=== PATIENT | female | born 1970 | race Caucasian/White ===

== ENCOUNTER 2021-02-20 09:40 | Emergency (ER) | payer BC ==
[2021-02-20 10:08] VITALS: BP 138/80; PULSE 101; RESP 18; TEMP 98.4
[2021-02-20] MEDS ORDERED: FLUORESCEIN STRIPS 1 MG STRIP RIGHT EYE STA (10:18)
[2021-02-20] MEDS ORDERED: PROPARACAINE 0.5% OPHTH DROPS 15 ML BTL RIGHT EYE STA (10:18)
[2021-02-20] MEDS ORDERED: ERYTHROMYCIN 5 MG/GM OPHTH OINT 1 GM TUBE RIGHT EYE STA (11:17)
--- NOTE | 2021-02-20 11:27 | ED ---
General Adult HPI - General Chief complaint: Eye Problems Stated complaint: eye problem Time Seen by Provider: 02/20/21 10:17 Source: patient, RN notes reviewed Mode of arrival: ambulatory Limitations: no limitations - History of Present Illness Initial comments: 51-year-old female without any significant past medical history presents to the emergency room for chief light of right eye irritation. Patient reports that she has irritation of the right eye since yesterday. States she woke up with it. Patient states that it is watering. She denies any purulent discharge. Patient does not use contacts. Patient is up-to-date on tetanus immunization within the year.Patient has no other complaints at this time including shortness of breath, chest pain, abdominal pain, nausea or vomiting, headache, or visual changes. - Related Data Home Medications Medication Instructions Recorded Confirmed Ibuprofen [Motrin] 600 mg PO Q6HR PRN 06/21/14 06/21/14 Previous Rx's Medication Instructions Recorded Erythromycin Ophth Oint [Romycin 1 applic RIGHT EYE QID 7 Days #5 gm 02/20/21 Ophth Oint] Allergies Allergy/AdvReac Type Severity Reaction Status Date / Time No Known Allergies Allergy Verified 02/20/21 10:08 Review of Systems ROS Statement: Those systems with pertinent positive or pertinent negative responses have been documented in the HPI. ROS Other: All systems not noted in ROS Statement are negative. Past Medical History Past Medical History: No Reported History History of Any Multi-Drug Resistant Organisms: None Reported Past Surgical History: Cholecystectomy, Orthopedic Surgery, Tonsillectomy, Tubal Ligation Additional Past Surgical History / Comment(s): RIGHT HAND SURGERY Past Anesthesia/Blood Transfusion Reactions: No Reported Reaction Past Psychological History: No Psychological Hx Reported Smoking Status: Current every day smoker Past Alcohol Use History: Occasional Past Drug Use History: None Reported General Exam Limitations: no limitations General appearance: alert, in no apparent distress Head exam: Present: atraumatic, normocephalic, normal inspection Eye exam: Present: PERRL, EOMI, conjunctival injection (erythema noted to conjunctiva). Absent: scleral icterus, periorbital swelling Expanded Eyelids: Normal Inspection: Bilateral Pupils: Regular, Round: Bilateral Sclera/Conjunctival: Normal Inspection: Left, Injection: Right Visual acuity (R) = 20/: 30 Visual acuity (L) = 20/: 20 With correction: No ENT exam: Present: normal exam, mucous membranes moist, TM's normal bilaterally, normal external ear exam Neck exam: Present: normal inspection, full ROM. Absent: tenderness, meningismus, lymphadenopathy Respiratory exam: Present: normal lung sounds bilaterally. Absent: respiratory distress, wheezes, rales, rhonchi, stridor Cardiovascular Exam: Present: regular rate, normal rhythm, normal heart sounds. Absent: systolic murmur, diastolic murmur, rubs, gallop, clicks GI/Abdominal exam: Present: soft, normal bowel sounds. Absent: distended, tenderness, guarding, rebound, rigid Course Vital Signs 02/20/21 10:04 Temperature 98.4 F Pulse Rate 101 H Respiratory 18 Rate Blood Pressure 138/80 O2 Sat by Pulse 100 Oximetry Medical Decision Making - Medical Decision Making Vis acuity 20/20 OS 20/30 OD. No foreign bodies with flipping of the upper and lower eyelids. The eye was visualized with fluorescein stain and Wood's lamp. fluoroscien stain to the right eye with abrasion noted at 6 oclock. negative siedel sign Disposition Clinical Impression: Corneal abrasion, right Disposition: HOME SELF-CARE Condition: Good Instructions (If sedation given, give patient instructions): Corneal Abrasion (ED) Additional Instructions: Please apply antibiotic ointment as directed every 6 hours for 7 days. Follow- up with primary care or ophthalmology in 1-2 days. Return to the emergency room for any worsening symptoms. Prescriptions: Erythromycin Ophth Oint [Romycin Ophth Oint] 1 applic RIGHT EYE QID 7 Days #5 gm Is patient prescribed a controlled substance at d/c from ED?: No Referrals: Micky Henderson MD [STAFF PHYSICIAN] - 1-2 days Time of Disposition: 11:26
== END 2021-02-20 11:40 | disposition home or self-care (01) ==
LOC: EC 09:40
DX: S05.01XA Injury of conjunctiva and corneal abrasion without foreign body, right eye, initial encounter (principal); F17.200 Nicotine dependence, unspecified, uncomplicated; X58.XXXA Exposure to other specified factors, initial encounter
CPT/HCPCS: 99283

== ENCOUNTER → 2021-05-03 | Outpatient (CLI) | payer BC ==
--- NOTE | 2021-05-03 17:40 | ECHOF ---
Referral Reason:R55.9 Syncope, MEASUREMENTS -------- HEIGHT: 177.8 cm WEIGHT: 124.7 kg BP: RVIDd: 4.2 cm (< 3.3) IVSd: 1.4 cm (0.6 - 1.1) LVIDd: 4.9 cm (3.9 - 5.3) LVPWd: 1.4 cm (0.6 - 1.1) IVSs: 1.9 cm LVIDs: 3.7 cm LVPWs: 1.5 cm LAESV Index (A-L): 33.49 ml/m Ao Diam: 3.2 cm (2.0 - 3.7) AV Cusp: 2.2 cm (1.5 - 2.6) MV EXCURSION: 14.577 mm (> 18.000) MV EF SLOPE: 62 mm/s (70 - 150) EPSS: 2.0 cm MV E Rubni: 1.05 m/s MV DecT: 152 ms MV A Rubin: 1.37 m/s MV E/A Ratio: 0.77 RAP: 5.00 mmHg RVSP: 31.17 mmHg FINDINGS -------- Sinus rhythm. This was a technically adequate study. The left ventricular size is normal. There is moderate concentric left ventricular hypertrophy. O verall left ventricular systolic function is severely impaired with, an EF between 25 - 30 %. Reshma l Doppler inflow pattern suggests diastolic filling abnormality {E/E'}. Mid anterior LV wall motion is hypokinetic. Mid lateral LV wall motion is hypokinetic. Mid anteroseptal LV wall motion is akinetic. Apical anterior LV wall motion is akinetic. Apical lateral LV wall motion is hypokine tic. Apical septum LV wall motion is akinetic. The right ventricle is severely enlarged. LA is moderately dilated 34-39 ml/m2 The right atrial size is normal. 5.0mg of Lumason was utilized for enhancement of images Interatrial and interventricular septum intact. The aortic valve is trileaflet, and appears structurally normal. No aortic stenosis or regurgitation. The mitral valve is normal. Mild mitral regurgitation is present. The tricuspid valve appears structurally normal. Mild tricuspid regurgitation present. Right vent ricular systolic pressure is normal at < 35 mmHg. The right ventricular systolic pressure, as measu red by Doppler, is 31.17mmHg. There is no pulmonic regurgitation present. The aortic root size is normal. IVC Not well visulized. There is no pericardial effusion. CONCLUSIONS -------- 1. There is moderate concentric left ventricular hypertrophy. 2. Overall left ventricular systolic function is severely impaired with, an EF between 25 - 30 %. 3. Mitral Doppler inflow pattern suggest diastolic filling abnormality {E/E'}. 4. Mid anterior LV wall motion is hypokinetic. 5. Mid lateral LV wall motion is hypokinetic. 6. Mid anteroseptal LV wall motion is akinetic. 7. Apical anterior LV wall motion is akinetic. 8. Apical lateral LV wall motion is hypokinetic. 9. Apical septum LV wall motion is akinetic. 10. The right ventricle is severely enlarged. 11. LA is moderately dilated 34-39 ml/m2 12. The aortic valve is trileaflet, and appears structurally normal. No aortic stenosis or regurgitat ion. 13. Mild mitral regurgitation is present. 14. Mild tricuspid regurgitation present. 15. There is no pericardial effusion. BLOGS MANAGER: Yolanda Castillo RDCS
== END | disposition home or self-care (01) ==
LOC: RADECHMAIN 14:57
PROVIDERS: ATTEND Family Medicine
DX: Z12.31 Encounter for screening mammogram for malignant neoplasm of breast (principal); I08.1 Rheumatic disorders of both mitral and tricuspid valves; R55 Syncope and collapse
CPT/HCPCS: 93306; 77067; 77063; Q9950

== ENCOUNTER 2021-05-09 05:49 | Day surgery (SDC) | payer BC ==
[2021-05-08 09:18] VITALS: BMI 41.5
[2021-05-09] MEDS ORDERED: ALPRAZolam 0.5 MG TAB PO PRN (05:58)
[2021-05-09] MEDS ORDERED: SODIUM CHLORIDE 0.9% 1,000 ML in EMPTY BAG 1 BAG IV ONE (05:58)
[2021-05-09] MEDS ORDERED: NITROGLYCERIN SL TABS 0.4 MG TAB SUBLINGUAL PRN (05:58)
[2021-05-09] MEDS ORDERED: ALPRAZolam 0.25 MG TAB PO PRN (05:58)
[2021-05-09] MEDS ORDERED: SODIUM CHLORIDE 0.9% 1,000 ML IV ONE (06:15)
[2021-05-09 06:38] LABS: Basophils # (A) 0.1 k/uL (0-0.2); Basophils % (A) 1 %; Eosinophils # (A) 0.5 k/uL (0-0.7); Eosinophils % (A) 5 %; HCT 42.1 % (34.0-46.0); HGB 14.3 gm/dL (11.4-16.0); Lymphocytes % (A) 22 %; MCH 32.8 pg (25.0-35.0); MCHC 33.9 g/dL (31.0-37.0); MCV 96.5 fL (80.0-100.0); Mean Platelet Volume 7.8; Monocytes # (A) 0.3 k/uL (0-1.0); Monocytes % (A) 4 %; Neutrophils % (A) 68 %; Platelet Count 218 k/uL (150-450); RBC 4.36 m/uL (3.80-5.40); RDW 13.1 % (11.5-15.5); WBC 8.9 k/uL (3.8-10.6)
[2021-05-09 06:46] VITALS: RESP 16; TEMP 98.7
[2021-05-09 06:54] LABS: African American GFR (CKD) >90 (>60 ml/min/1.73 sqM); Anion Gap 3 mmol/L; Blood Urea Nitrogen 15 mg/dL (7-17); Calcium 9.2 mg/dL (8.4-10.2); Carbon Dioxide 30 mmol/L (22-30); Chloride 109 mmol/L (98-107); Glucose 97 mg/dL (74-99); Non-African American GFR(CKD) >90 (>60 ml/min/1.73 sqM); Potassium 4.2 mmol/L (3.5-5.1); Sodium 142 mmol/L (137-145)
[2021-05-09] MEDS ORDERED: HEPARIN SODIUM,PORCINE 2,500 UNIT in SODIUM CHLORIDE 0.9% 250 ML IRRIGATION PRN (07:00)
[2021-05-09] MEDS ORDERED: ASPIRIN 325 MG TAB PO ONE (07:00)
[2021-05-09] MEDS ORDERED: HEPARIN SODIUM,PORCINE 10,000 UNIT in SODIUM CHLORIDE 0.9% 1,000 ML IRRIGATION PRN (07:00)
[2021-05-09] MEDS ORDERED: ATORVASTATIN 80 MG TAB PO ONE (07:00)
[2021-05-09] MEDS ORDERED: VERAPAMIL 2.5 MG/ML 2 ML AMP ONE (07:14)
[2021-05-09] MEDS ORDERED: LIDOCAINE 1% INJ 10MG/ML (20 ML MDV) ONE (07:14)
[2021-05-09] MEDS ORDERED: fentaNYL (PF) 50 MCG/ML 2 ML AMP ONE (07:30)
[2021-05-09] MEDS ORDERED: fentaNYL (PF) 50 MCG/ML 2 ML AMP IV ONE (07:41)
[2021-05-09] MEDS ORDERED: LIDOCAINE 1% INJ 10MG/ML (20 ML MDV) SQ ONE (07:41)
[2021-05-09] MEDS ORDERED: MIDAZOLAM 2 MG/2 ML VIAL IV ONE ×2 (07:41)
[2021-05-09] MEDS ORDERED: VERAPAMIL SYRINGE (5 MG/10 ML) INTRAARTER ONE (07:45)
[2021-05-09] MEDS ORDERED: HEPARIN SODIUM 1,000 UN/ML (10ML VL) IV ONE (07:50)
[2021-05-09] MEDS ORDERED: IOPAMIDOL-370 125ML BTL INJ ONE ×2 (07:51)
[2021-05-09] MEDS ORDERED: RX INFO: IV CONTRAST WAS GIVEN 1 EACH MISC MISCELLANE PRN (08:13)
[2021-05-09] MEDS ORDERED: IBUPROFEN 600 MG TAB PO PRN (08:14)
[2021-05-09] MEDS ORDERED: SODIUM CHLORIDE 0.9% 1,000 ML IV SCH (08:15)
[2021-05-09 10:10] VITALS: BP 131/59; PULSE 67
--- NOTE | 2021-05-09 16:24 | CC ---
CARDIAC CATHETERIZATION REPORT Mrs. Madden is a 51-year-old female with a history of chronic tobacco use who was recently found to have a left bundle branch block of unknown duration. She underwent an echocardiogram, revealed severely impaired left ventricular systolic function. In view of that, recommendation regarding cardiac catheterization. The procedure as well as the risks and complications were discussed with the patient who is in full understanding and agreement. PROCEDURE: Patient was brought to industrial laborer in fasting semi-sedated state after receiving fentanyl and Benadryl and achieving moderate conscious sedated state. Using Xylocaine anesthesia and Seldinger technique, a 6-Chinese sheath was introduced in the right radial artery. Selective right and left coronary angiography performed using 5-Chinese 3.5 bend right and left Lilibeth catheter. Multiple views of the coronary arteries including hemiaxial views were obtained. Following that, 5-Chinese tight pigtail catheter was placed in the left ventricle and a 30-degree CERVANTES view of the left ventricle was obtained. Following that, catheter and sheath were removed. Hemostasis was obtained. Deployment of TR band. There was no immediate complication. Patient is returned to room in stable condition. Of note, the patient received a total of 5000 units of intravenous heparin as well as intra-arterial verapamil. FINDINGS: Left Main: This is a short size vessel, large in caliber, bifurcating into left circumflex, left anterior descending artery. Left main coronary artery has no evidence of high-grade stenosis. Left anterior descending artery: This is a large-sized vessel, reaching into the apex, giving rise to a small diagonal branch. The left anterior descending artery, as well as branches, have no evidence of obstructive coronary artery disease. Left Circumflex: This is a large nondominant vessel giving rise to a large obtuse marginal branch. The left circumflex as well as branches have no evidence of obstructive coronary artery disease. Right coronary artery: This is a large dominant vessel bifurcating distally into PDA and posterolateral segment branches. The right coronary artery as well as branches have no evidence of obstructive disease. Left ventriculogram: The ventriculogram was performed in 30-degree CERVANTES view and revealed severe global hypokinesis, more noted in the anteroapical and inferoapical wall with an ejection fraction of 20% to 25%. There was no significant mitral regurgitation. HEMODYNAMICS: There was no gradient across the aortic valve. The left ventricular end-diastolic pressure was 30-34 mmHg. CONCLUSION: 1. Normal coronary arteries. 2. Severely impaired left ventricular systolic function. 3. Elevated left ventricular end-diastolic pressure. RECOMMENDATION: In view of finding anatomy, I recommend to maximize her medical therapy with close followup of left ventricular systolic function. The patient appears to have severe nonischemic cardiomyopathy and may benefit from an a BiV ICD implantation. Those findings and recommendations were discussed with the patient and her family and they are in full understanding and agreement. MMODL / IJN: [id number] /
[2021-05-09] MEDS ORDERED: METOPROLOL TARTRATE 25 MG TAB PO SCH (21:00)
[2021-05-09] MEDS ORDERED: lisinopriL 5 MG TAB PO SCH (21:00)
[2021-05-10] MEDS ORDERED: SPIRONOLACTONE 25 MG TAB PO SCH (09:00)
== END 2021-05-09 11:40 | disposition home or self-care (01) ==
LOC: CATHCVL 05:49
PROVIDERS: ATTEND Internal Medicine Interventional Cardiology
DX: I44.7 Left bundle-branch block, unspecified (principal); F17.210 Nicotine dependence, cigarettes, uncomplicated; I34.0 Nonrheumatic mitral (valve) insufficiency; Z82.49 Family history of ischemic heart disease and other diseases of the circulatory system; Z20.822 Contact with and (suspected) exposure to COVID-19
CPT/HCPCS: 93458; 80048; 85025; 87635; C1894; C1769; J2250; J2001; J3010; J1644; Q9967

== ENCOUNTER → 2022-04-29 | Outpatient (CLI) | payer BC ==
--- NOTE | 2022-04-30 13:01 | XR ---
Right knee HISTORY: Pain and swelling 3 views of the right knee No comparisons Bone mineralization, joint spaces and alignment are maintained. No evident joint effusion. Soft tissu e swelling is questioned. There is no fracture or dislocation. Impression: Correlate for soft tissue swelling.
== END | disposition home or self-care (01) ==
LOC: RADXRMAIN 16:32
PROVIDERS: ATTEND Family Medicine
DX: M25.561 Pain in right knee (principal)

== ENCOUNTER → 2022-05-13 | Outpatient (CLI) | payer BC ==
[2022-05-14 00:53] LABS: HCT 40.5 % (37.2-46.3); HGB 12.9 g/dL (12.0-15.0); MCH 30.9 pg (27.0-32.0); MCHC 31.9 g/dL (32.0-37.0); MCV 97.1 fL (80.0-97.0); Mean Platelet Volume 10.6 fL (9.5-12.2); NRBC Per 100 WBC 0 /100 WBCS (0.0-0.0); Platelet Count 233 X 10*3/uL (140-440); RBC 4.17 X 10*6/uL (4.10-5.20); RDW 12.8 % (11.5-14.5); WBC 7.23 X 10*3/uL (4.50-10.00)
== END | disposition home or self-care (01) ==
LOC: LABPAT 16:00
PROVIDERS: ATTEND Anesthesiology
DX: Z01.812 Encounter for preprocedural laboratory examination (principal)
CPT/HCPCS: 85027; 93005

== ENCOUNTER 2022-05-14 09:36 | Day surgery (SDC) | payer BC ==
[2022-05-13 09:04] VITALS: BMI 43.0
[~2022-05-14 09:36] MED LIST: ACETAMINOPHEN TAB 500 MG TAB PO PRN; DEXAMETHASONE SOD PHOSPHATE 4 MG/ML 1 ML VIAL IV ONE; HEPARIN SODIUM,PORCINE/PF 5,000 UNIT/0.5 ML SYRINGE SQ PRN; LACTATED RINGERS 1,000 ML IV SCH; LIDOCAINE 1% (10MG/ML) FOR IV START INTRADERMA PRN; ONDANSETRON 4 MG/2 ML VIAL IVP ONE; ceFAZolin 3 GM in SODIUM CHLORIDE 0.9% 100 ML IVPB PRN
[2022-05-14 10:12] VITALS: TEMP 96.6
--- NOTE | 2022-05-14 11:11 | P.GSHP ---
History of Present Illness H&P Date: 05/14/22 Chief Complaint: Left breast skin lesion This a 52-year-old female has developed a epidermal inclusion cyst on the left medial breast. She presents today for excision. Past Medical History Past Medical History: Heart Failure History of Any Multi-Drug Resistant Organisms: None Reported Past Surgical History: Cholecystectomy, Orthopedic Surgery, Tonsillectomy, Tubal Ligation Additional Past Surgical History / Comment(s): RIGHT HAND SURGERY , 2017 vein removal LEFT LEG, Past Anesthesia/Blood Transfusion Reactions: No Reported Reaction Smoking Status: Current every day smoker - Past Family History Mother Family Medical History: CVA/TIA, Myocardial Infarction ([place]) Medications and Allergies Home Medications Medication Instructions Recorded Confirmed Type Metoprolol Tartrate 25 mg PO BID 05/09/21 05/13/22 History Spironolactone [Aldactone] 25 mg PO DAILY #90 tab 05/09/21 05/14/22 Rx Sacubitril/Valsartan [Entresto 49 1 tab PO BID 05/13/22 05/13/22 History mg-51 mg Tablet] Allergies Allergy/AdvReac Type Severity Reaction Status Date / Time hydromorphone [From Dilaudid] AdvReac Nausea & Verified 05/14/22 10:02 Vomiting Surgical - Exam Vital Signs Temp Pulse Resp BP Pulse Ox 96.6 F L 71 18 116/73 97 05/14/22 10:11 05/14/22 10:11 05/14/22 10:11 05/14/22 10:11 05/14/22 10:11 - General well developed, well nourished, no distress - Eyes PERRL - ENT normal pinna - Neck no masses - Respiratory normal expansion - Cardiovascular Rhythm: regular - Abdomen Abdomen: soft, non tender - Integumentary 2 cm epidermal inclusion cyst left breast medial Assessment and Plan Assessment: Left breast epidermal inclusion cyst. We'll perform excision.
[2022-05-14] MEDS ORDERED: PROPOFOL 10 MG/ML 20 ML VIAL IV ONE (11:20)
[2022-05-14] MEDS ORDERED: LIDOCAINE 2% INJ 20 MG/ML (2 ML VIAL) ONE (11:20)
[2022-05-14] MEDS ORDERED: MIDAZOLAM 2 MG/2 ML VIAL ONE (11:20)
[2022-05-14] MEDS ORDERED: KETAMINE 10 MG/ML 20 ML VIAL ONE (11:20)
[2022-05-14] MEDS ORDERED: fentaNYL (PF) 50 MCG/ML 2 ML AMP ONE (11:20)
[2022-05-14] MEDS ORDERED: BUPIVACAIN-EPI 0.25%-1:200,000 30 ML VIAL SQ ONE (11:40)
--- NOTE | 2022-05-14 11:54 | P.OP ---
Date of Procedure: 05/14/22 Preoperative Diagnosis: Left breast epidermal skin inclusion cyst Postoperative Diagnosis: Same Procedure(s) Performed: Excision of left breast epidermal inclusion cyst Anesthesia: MAC, local Surgeon: Wesley Roberts Pathology: other (Left breast epidermal inclusion cyst) Condition: stable Disposition: PACU Description of Procedure: The patient's placed on the operative table in supine position. She received IV sedation. The skin was anesthetized around the epidermal inclusion cyst. The cyst located on the medial aspect left breast 9 o'clock position. After adequate anesthesia local skin incision was made around the cyst. In the left cautery the specimen was removed. The specimen measured approximately 3 x 5 cm. The skin was then closed interrupted 3-0 Monocryl suture. Dermabond was applied. Patient top she will sent to recovery room in stable condition.
[2022-05-14 12:29] VITALS: BP 107/68; PULSE 55; RESP 14
== END 2022-05-14 12:53 | disposition home or self-care (01) ==
LOC: OR 09:36
PROVIDERS: ATTEND Surgery
DX: L72.0 Epidermal cyst (principal); I50.9 Heart failure, unspecified; I42.8 Other cardiomyopathies; F17.200 Nicotine dependence, unspecified, uncomplicated; Z82.3 Family history of stroke; Z82.49 Family history of ischemic heart disease and other diseases of the circulatory system; Z90.49 Acquired absence of other specified parts of digestive tract; Z88.5 Allergy status to narcotic agent; Z79.899 Other long term (current) drug therapy
CPT/HCPCS: 11406; J2250; J1100; J0690; J2405; J3010; J2704; J1644; J2001; 88304

== ENCOUNTER → 2022-06-20 | Outpatient (CLI) | payer BC ==
[2022-06-20 22:46] LABS: African American GFR (CKD) 86.4 (60.0-200.0); Albumin/Globulin Ratio 1.67 (1.60-3.17); Anion Gap 8.8 mmol/L (10.00-18.00); BUN/Creat Ratio 15.56 Ratio (12.00-20.00); Calcium 9.1 mg/dL (8.7-10.3); Carbon Dioxide 28.2 mmol/L (20.0-27.5); Globulin 2.4 g/dL (1.6-3.3); Non-African American GFR(CKD) 74.6 (60.0-200.0); Potassium 3.9 mmol/L (3.5-5.5); Total Bilirubin 0.8 mg/dL (0.30-1.20); Total Protein 6.4 g/dL (6.2-8.2)
== END | disposition home or self-care (01) ==
LOC: LABWHC1 16:19
PROVIDERS: ATTEND Nurse Practitioner Adult Health
DX: I42.8 Other cardiomyopathies (principal)
CPT/HCPCS: 36415; 80053; 83880

== ENCOUNTER → 2022-09-29 | Outpatient (CLI) | payer BC ==
[2022-09-29 23:37] LABS: African American GFR (CKD) 86.4 (60.0-200.0); Albumin 4.2 g/dL (3.8-4.9); Albumin/Globulin Ratio 1.75 (1.60-3.17); Anion Gap 8.9 mmol/L (10.00-18.00); BUN/Creat Ratio 15.89 Ratio (12.00-20.00); Blood Urea Nitrogen 14.3 mg/dL (9.0-27.0); Calcium 9.4 mg/dL (8.7-10.3); Carbon Dioxide 28.1 mmol/L (20.0-27.5); Globulin 2.4 g/dL (1.6-3.3); Non-African American GFR(CKD) 74.6 (60.0-200.0); Potassium 4.3 mmol/L (3.5-5.5); Total Bilirubin 0.5 mg/dL (0.30-1.20); Total Protein 6.6 g/dL (6.2-8.2)
== END | disposition home or self-care (01) ==
LOC: LABWHC1 16:25
PROVIDERS: ATTEND Internal Medicine Interventional Cardiology
DX: I42.8 Other cardiomyopathies (principal)
CPT/HCPCS: 36415; 80053; 83880

== ENCOUNTER 2022-10-16 10:01 | Emergency (ER) | payer BC ==
[2022-10-16 10:17] VITALS: BP 110/65; PULSE 103; RESP 18; TEMP 98.1
[2022-10-16] MEDS ORDERED: LIDOCAINE 1% INJ 10MG/ML (30 ML VIAL-PF) SQ ONE (11:19)
[2022-10-16] MEDS ORDERED: CEPHALEXIN 500 MG CAP PO STA (11:20)
[2022-10-16] MEDS ORDERED: SULFAMETHOX-TMP 800-160MG 1 EACH TAB PO STA (11:20)
--- NOTE | 2022-10-16 12:27 | ED ---
Skin/Abscess/FB HPI - General Chief complaint: Skin/Abscess/Foreign Body Stated complaint: Swollen arm/infection Time Seen by Provider: 10/16/22 10:43 Source: patient Mode of arrival: ambulatory Limitations: no limitations - History of Present Illness Initial comments: Patient is a 52-year-old female who presents to the emergency department with a chief complaint of pain and swelling of her left arm. Symptoms started and the and have been worsening. Patient states she was given ciprofloxacin on Thursday by her primary care provider due to infection of the left arm. Patient has been taking his medication as directed without improvement. She denies fever, chills, nausea, vomiting. Does admit a history of cellulitis on the leg. Denies history of abscess however does report drainage of cyst on her upper back previously. - Related Data Home Medications Medication Instructions Recorded Confirmed Metoprolol Tartrate 25 mg PO BID 05/09/21 05/13/22 Sacubitril/Valsartan [Entresto 49 1 tab PO BID 05/13/22 05/13/22 mg-51 mg Tablet] Previous Rx's Medication Instructions Recorded Spironolactone [Aldactone] 25 mg PO DAILY #90 tab 05/09/21 Cephalexin [Keflex] 500 mg PO Q6HR #20 cap 10/16/22 Sulfamethox-Tmp 800-160Mg [Bactrim 1 each PO Q12HR #10 tab 10/16/22 Ds] Allergies Allergy/AdvReac Type Severity Reaction Status Date / Time hydromorphone [From Dilaudid] AdvReac Nausea & Verified 10/16/22 10:17 Vomiting Review of Systems ROS Statement: Those systems with pertinent positive or pertinent negative responses have been documented in the HPI. ROS Other: All systems not noted in ROS Statement are negative. Past Medical History Past Medical History: Heart Failure History of Any Multi-Drug Resistant Organisms: None Reported Past Surgical History: Cholecystectomy, Orthopedic Surgery, Tonsillectomy, Tubal Ligation Additional Past Surgical History / Comment(s): RIGHT HAND SURGERY , 2017 vein removal LEFT LEG, Past Anesthesia/Blood Transfusion Reactions: No Reported Reaction Past Psychological History: No Psychological Hx Reported Smoking Status: Current every day smoker Past Alcohol Use History: Rare Past Drug Use History: None Reported - Past Family History Mother Family Medical History: CVA/TIA, Myocardial Infarction ([place]) General Exam Limitations: no limitations General appearance: alert, in no apparent distress Head exam: Present: atraumatic, normocephalic, normal inspection Eye exam: Present: normal appearance, PERRL, EOMI. Absent: scleral icterus, conjunctival injection, periorbital swelling Respiratory exam: Present: normal lung sounds bilaterally. Absent: respiratory distress, wheezes, rales, rhonchi, stridor Cardiovascular Exam: Present: regular rate, normal rhythm, normal heart sounds. Absent: systolic murmur, diastolic murmur, rubs, gallop, clicks Extremities exam: Present: other (6 by 3 cm abscess over posterior upper arm with surrounding cellulitis. No extension into the lower arm, breast, or axilla) Neurological exam: Present: alert, oriented X3, CN II-XII intact Psychiatric exam: Present: normal affect, normal mood Skin exam: Present: warm, dry, intact, normal color. Absent: rash Course Vital Signs 10/16/22 10:13 Temperature 98.1 F Pulse Rate 103 H Respiratory 18 Rate Blood Pressure 110/65 O2 Sat by Pulse 98 Oximetry Procedures - Incision & Drainage Consent Obtained: verbal consent Site: upper extremity Anesthetic Used: lidocaine 1% I&D Cleaning Method: Betadine Sterile Field Used?: Yes Scalpel Used: #11 I&D Drainage Obtained: Pus, Blood Packing: Iodoform Culture Obtained?: Yes Patient Tolerated Procedure: well, no complications Medical Decision Making - Medical Decision Making This is a 52-year-old female presenting for pain and swelling of her left arm. Fluctuant abscess noted with surrounding cellulitis. No systemic symptoms. Incision and drainage was performed by me. Copious purulent fluid was drained. The abscess was packed with iodoform packing. Wound culture pending. Abscess education provided in detail. Patient will be discharged with Bactrim and Keflex. First dose given in the emergency department. Return parameters discussed. Patient to follow-up with primary care provider. Dr. Vargas is my attending. Disposition Clinical Impression: Abscess, Arm pain Disposition: HOME SELF-CARE Condition: Good Instructions (If sedation given, give patient instructions): Abscess Incision and Drainage (ED), Abscess (ED) Additional Instructions: Take antibiotic as directed. Please keep packing in as long as possible to keep the pathway for continuous drainage. You may take the packing out when antibiotics are finished. Use warm compress throughout the day to assist drainage. Change dressing every 24 hours or if saturated. Keep wound clean and dry. Wash the wound with a mild soap during dressing change and be sure to dry thoroughly. If you need more dressing supplies or tape you can find some at a local pharmacy. Take Tylenol or Motrin for pain. Follow-up with primary care provider in 1 to 2 days. Return to the emergency department if you experience new, concerning, or worsening symptoms. Prescriptions: Sulfamethox-Tmp 800-160Mg [Bactrim Ds] 1 each PO Q12HR #10 tab Cephalexin [Keflex] 500 mg PO Q6HR #20 cap Is patient prescribed a controlled substance at d/c from ED?: No Referrals: Mat Wynne MD [Primary Care Provider] - 1-2 days
== END 2022-10-16 13:03 | disposition home or self-care (01) ==
LOC: EC 10:01
DX: L02.414 Cutaneous abscess of left upper limb (principal); I50.9 Heart failure, unspecified; F17.200 Nicotine dependence, unspecified, uncomplicated; Z88.5 Allergy status to narcotic agent
CPT/HCPCS: 99283; 10060; J2001

== ENCOUNTER → 2023-05-05 | Outpatient (CLI) | payer BC ==
[2023-05-05 17:35] LABS: ALT 17 U/L (4-34); AST 25 U/L (14-36); African American GFR (CKD) >90 (>60 ml/min/1.73 sqM); Albumin 4.1 g/dL (3.5-5.0); Albumin/Globulin Ratio 1.4; Alkaline Phosphatase 66 U/L (38-126); Anion Gap 9 mmol/L; Blood Urea Nitrogen 14 mg/dL (7-17); Calcium 9.2 mg/dL (8.4-10.2); Carbon Dioxide 24 mmol/L (22-30); Chloride 105 mmol/L (98-107); Glucose 87 mg/dL (74-99); Non-African American GFR(CKD) 82 (>60 ml/min/1.73 sqM); Potassium 4.2 mmol/L (3.5-5.1); Sodium 138 mmol/L (137-145); Total Bilirubin 0.9 mg/dL (0.2-1.3); Total Protein 7.1 g/dL (6.3-8.2)
== END | disposition home or self-care (01) ==
LOC: LABWHC1 16:17
PROVIDERS: ATTEND Internal Medicine Interventional Cardiology
DX: I42.8 Other cardiomyopathies (principal)
CPT/HCPCS: 36415; 80053; 83880

== ENCOUNTER → 2023-06-26 | Outpatient (CLI) | payer BC ==
--- NOTE | 2023-06-26 16:51 | XR ---
EXAMINATION TYPE: XR shoulder complete RT DATE OF EXAM: 06/26/2023 CLINICAL HISTORY: pain TECHNIQUE: Three views of the right shoulder are obtained. COMPARISON: None FINDINGS: There is no acute fracture/dislocation evident. The acromioclavicular and glenohumeral luciano int spaces appear within normal limits. The visualized ribs are intact and unremarkable. IMPRESSION: 1. There is no acute fracture or dislocation. ICD 10 NO FRACTURE, INITIAL EVALUATION
== END | disposition home or self-care (01) ==
LOC: LABWHC1 16:25
PROVIDERS: ATTEND Family Medicine
DX: M25.511 Pain in right shoulder (principal)

== ENCOUNTER → 2024-01-05 | Outpatient (CLI) | payer BC ==
[2024-01-05 17:25] LABS: NT-Pro-B-Type Natriuretic Pept 135 pg/mL
[2024-01-06 02:11] LABS: ALT 22 U/L (8-44); AST 22 U/L (13-35); Albumin 4.3 g/dL (3.8-4.9); Albumin/Globulin Ratio 1.54 Ratio (1.60-3.17); Alkaline Phosphatase 71 U/L (41-126); Blood Urea Nitrogen 18.9 mg/dL (9.0-27.0); Calcium 9.4 mg/dL (8.7-10.3); Carbon Dioxide 22.8 mmol/L (21.6-31.8); Chloride 102 mmol/L (96-109); Globulin 2.8 g/dL (1.6-3.3); Glucose 87 mg/dL (70-110); Potassium 4.1 mmol/L (3.5-5.5); Sodium 139 mmol/L (135-145); Total Bilirubin 0.7 mg/dL (0.3-1.2); Total Protein 7.1 g/dL (6.2-8.2)
== END | disposition home or self-care (01) ==
LOC: LABWHC1 16:16
PROVIDERS: ATTEND Internal Medicine Interventional Cardiology
DX: I42.8 Other cardiomyopathies (principal); I50.22 Chronic systolic (congestive) heart failure
CPT/HCPCS: 36415; 80053; 83880

== ENCOUNTER → 2024-02-05 | Outpatient (CLI) | payer BC ==
--- NOTE | 2024-02-05 13:19 | XR ---
EXAMINATION TYPE: XR knee complete RT DATE OF EXAM: 02/05/2024 COMPARISON: NONE HISTORY: Pain TECHNIQUE: Three views are submitted. FINDINGS: Mild degenerative changes tricompartment joint space with marginal spurring. Small suprapatellar burs al fluid collection. Mild osteopenia.. Osseous structures are intact. No acute fracture seen. IMPRESSION: 1. Mild demineralization and osteoarthritis. 2. Small suprapatellar bursal fluid collection. Could be post arthritic but may also be associated in ternal derangement of the knee.
== END | disposition home or self-care (01) ==
LOC: RADXRMAIN 12:57
PROVIDERS: ATTEND Family Medicine
DX: M17.11 Unilateral primary osteoarthritis, right knee (principal); M25.861 Other specified joint disorders, right knee

== ENCOUNTER → 2024-07-15 | Outpatient (CLI) | payer BC ==
[2024-07-16 04:43] LABS: NT-Pro-B-Type Natriuretic Pept 134 pg/mL (0-125)
[2024-07-16 05:09] LABS: ALT 14 U/L (8-44); AST 20 U/L (13-35); Albumin 4.3 g/dL (3.8-4.9); Albumin/Globulin Ratio 1.65 Ratio (1.60-3.17); Alkaline Phosphatase 61 U/L (41-126); Blood Urea Nitrogen 13.6 mg/dL (9.0-27.0); Calcium 9.5 mg/dL (8.7-10.3); Carbon Dioxide 25.2 mmol/L (21.6-31.8); Chloride 104 mmol/L (96-109); Globulin 2.6 g/dL (1.6-3.3); Glucose 82 mg/dL (70-110); Potassium 4.6 mmol/L (3.5-5.5); Sodium 139 mmol/L (135-145); Total Bilirubin 0.6 mg/dL (0.3-1.2); Total Protein 6.9 g/dL (6.2-8.2)
== END | disposition home or self-care (01) ==
LOC: LABWHC1 16:04
PROVIDERS: ATTEND Internal Medicine Interventional Cardiology
DX: I42.8 Other cardiomyopathies (principal)
CPT/HCPCS: 36415; 80053; 83880

== ENCOUNTER → 2025-01-13 | Outpatient (CLI) | payer BC ==
[2025-01-14 02:00] LABS: BUN/Creat Ratio 30.44 Ratio (12.00-20.00); Blood Urea Nitrogen 27.4 mg/dL (9.0-27.0); Glucose 85 mg/dL (70-110)
[2025-01-14 02:01] LABS: Calcium 9.3 mg/dL (8.7-10.3); Carbon Dioxide 22.9 mmol/L (21.6-31.8); Chloride 104 mmol/L (96-109); Potassium 4.3 mmol/L (3.5-5.5); Sodium 139 mmol/L (135-145)
[2025-01-14 03:08] LABS: NT-Pro-B-Type Natriuretic Pept 95 pg/mL (0-125)
== END | disposition home or self-care (01) ==
LOC: LABWHC1 16:28
PROVIDERS: ATTEND Internal Medicine Interventional Cardiology
DX: I42.8 Other cardiomyopathies (principal); I50.22 Chronic systolic (congestive) heart failure
CPT/HCPCS: 36415; 80048; 83880